=== PATIENT | male | born 1965 | race Two or more races ===

== ENCOUNTER 2021-09-21 10:45 | Emergency (ER) | payer OTHER ==
[~2021-09-21] VITALS: Ht 193 cm; Wt 99.8 kg
--- OUTSIDE RECORDS SUMMARY | 2021-09-21 10:50 | XMS ---
PreManage Notification: LEE VARGHESE Security Bander Hand Events No recent Security Events currently on file CRITERIA MET - [facility] Celestino Kenny PA-C Physician Media Librarian Current PHONE: Unknown CLEO MCDANIEL Physician Media Librarian Current PHONE: Unknown Faith has no Care Guidelines for this patient. Joel VISIT COUNT (12 MO.) [address] [place] [address] LISA Foley TOTAL 2 NOTE: Visits indicate total known visits. ED/UCC VISIT TRACKING (12 MO.) 09/21/2021 10:49 [facility] [place] TYPE: Emergency COMPLAINT: - HEADACHES, DIZZINESS, UNBALANCED 05/27/2021 11:11 [facility] [place] TYPE: Emergency DIAGNOSES: - Strain of muscle, fascia and tendon of lower back, initial encounter - HEAD INJURY OSILVERIO [id number] - Strain of muscle, fascia and tendon at neck level, initial encounter - Abrasion of scalp, initial encounter - Contusion of scalp, initial encounter - Olecranon bursitis, right elbow INPATIENT VISIT TRACKING (12 MO.) No inpatient visits to display in this time frame [email or web address]
[2021-09-21] MEDS ORDERED: CARAFATE1 GM PO (11:23)
== END 2021-09-21 12:42 | disposition home or self-care (01) ==
LOC: ED 10:45
DX: M48.02 Spinal stenosis, cervical region (principal); Z79.899 Other long term (current) drug therapy
CPT/HCPCS: 99283